=== PATIENT | male | born 1995 | race Caucasian/White ===

== ENCOUNTER 2018-08-24 02:36 | Emergency (ER) | payer OTHER ==
[~2018-08-24] VITALS: Ht 177.8 cm; Wt 93.2 kg
[2018-08-24 02:37] VITALS: BP 140/85
[2018-08-24] MEDS ORDERED: IBUP40TA PO (02:41)
[2018-08-24 03:41] LABS: INFLUENZA A AMPLIFICATION NEGATIVE (NEGATIVE); INFLUENZA B AMPLIFICATION NEGATIVE (NEGATIVE)
[2018-08-24] MEDS ORDERED: PRED20TA PO (04:21)
[2018-08-24] MEDS ORDERED: ZITHTAB PO (04:21)
--- NOTE | 2018-08-24 06:17 | REP ---
Clinical: Acute cough . Comparison: None . Technique: PA and lateral. Findings: The mediastinum and cardiac silhouette are normal. The lung portillo are clear and without acute consolidation, effusion, or pneumothorax. The skeletal structures are intact and normal. Impression: 1. No acute cardiopulmonary process. Electronically Signed by Shiraz Malloy MD 08/24/2018 06:08 A
== END 2018-08-24 04:32 | disposition home or self-care (01) ==
LOC: M ED 02:36
DX: J06.9 Acute upper respiratory infection, unspecified (principal); J40 Bronchitis, not specified as acute or chronic; R11.10 Vomiting, unspecified; F17.200 Nicotine dependence, unspecified, uncomplicated

== ENCOUNTER 2019-01-04 07:21 | Emergency (ER) | payer OTHER ==
[~2019-01-04] VITALS: Ht 180.3 cm; Wt 99.9 kg
[2019-01-04 07:21] VITALS: BP 129/68
[~2019-01-04 07:21] MED LIST: IBUP40TA PO; PRED20TA PO; ZITHTAB PO
[2019-01-04] MEDS ORDERED: MELA3TAB24 PO (07:28)
[2019-01-04] MEDS ORDERED: ROBI1LIQ9 PO (07:28)
[2019-01-04] MEDS ORDERED: IBUP-1022 PO (08:12)
[2019-01-04] MEDS ORDERED: AFRI0.058 (08:12)
[2019-01-04] MEDS ORDERED: BENZ200C70 PO (08:12)
[2019-01-04] MEDS ORDERED: ONDA4TAB6 PO (08:19)
--- NOTE | 2019-01-04 08:41 | REP ---
Chest two views HISTORY: Cough Comparison: 08/24/2018 The lungs are clear. The heart is normal in size. The pulmonary vasculature is normal in appearance. The bony structure is intact. IMPRESSION: No acute disease. Electronically Signed by Chester Emmanuel MD 01/04/2019 08:32 A
== END 2019-01-04 08:15 | disposition home or self-care (01) ==
LOC: M ED 07:21
DX: J06.9 Acute upper respiratory infection, unspecified (principal); F17.210 Nicotine dependence, cigarettes, uncomplicated

== ENCOUNTER → 2019-02-07 | Outpatient (CLI) | payer OTHER ==
[~2019-02-07] MED LIST changes: +AFRI0.058; +BENZ200C70 PO; +IBUP-1022 PO; +MELA3TAB24 PO; +ONDA4TAB6 PO; +ROBI1LIQ9 PO
--- NOTE | 2019-02-09 09:33 | SLEEPCENT ---
DATE OF PROCEDURE: 02/07/2019 ORDERED BY: Olga Fletcher NP Nocturnal polysomnography was performed for evaluation of sleep physiology in this patient with a history of snoring, irregular breathing patterns in sleep, excessive somnolence, and nonrestorative sleep. 8 hours and 28 minutes were of data were reviewed. There were 326 minutes of sleep identified. Sleep latency was prolonged at 61.5 minutes. Rapid eye movement (REM) latency was prolonged at 208 minutes. Sleep architecture once established was fair with 3 REM cycles noted. Overall sleep efficiency was 65.2% due to a period of wake after sleep onset. The electrocardiogram showed sinus rhythm with respiratory variability, average heart rate 62 beats per minute. Electroencephalogram (EEG) showed normal waveforms for awake and sleep. There were 50 respiratory events identified of 10 seconds in duration or greater for an apnea-hypopnea index of 9.2. The events were primarily obstructive but not exclusive to sleep stage nor body posture. Arousals from respiratory events occurred 3.5 times per hour and oxygen desaturations were seen into the upper 80s. There was some limb activity but arousals from limb events were few. IMPRESSION: Obstructive sleep apnea syndrome (G47.33). Apnea-hypopnea index 9.2. RECOMMENDATIONS: The patient should be encouraged to return to the sleep disorder center for pressure therapy. In the interim, alcohol and sedative avoidance should be practiced and cautioned exercised during the operation of motor vehicles.
== END ==
LOC: M SLEEP 19:27
PROVIDERS: ATTEND Nurse Practitioner Adult Health
DX: G47.30 Sleep apnea, unspecified (principal)

== ENCOUNTER → 2019-03-10 | Outpatient (CLI) | payer OTHER ==
--- NOTE | 2019-03-16 09:09 | SLEEPCENT ---
DATE OF PROCEDURE: 03/10/2019 ORDERED BY: Olga Fletcher NP Nocturnal polysomnography was performed for the titration of pressure therapy in this patient with obstructive sleep apnea syndrome, apnea-hypopnea index 9.2. For testing a [employer] Quattro Mirage full face mask of medium size was used. 4 cm of water pressure were applied to the circuit and the lights were extinguished. 7 hours and 35 minutes of data were reviewed. There 391 minutes of sleep identified. Sleep latency was prolonged at 36 minutes. REM latency was normal at 97 minutes. Sleep architecture was fairly good with three REM cycles noted. Overall sleep efficiency 89.2%. The patient's electrocardiogram showed a sinus rhythm with an average heart rate of 56 beats per minute. EEG showed normal waveforms for awake and sleep stages. Respiratory events reasonably well palliated with CPAP at a pressure of +8 and remaining measures of sleep physiology were normal. IMPRESSION: Obstructive sleep apnea syndrome (G47.33). RECOMMENDATION: Nightly use of pressure therapy, 8 cm of water.
== END ==
LOC: M SLEEP 19:44
PROVIDERS: ATTEND Nurse Practitioner Adult Health
DX: G47.33 Obstructive sleep apnea (adult) (pediatric) (principal)

== ENCOUNTER 2019-07-24 18:54 | Emergency (ER) | payer OTHER ==
[~2019-07-24] VITALS: Ht 180.3 cm; Wt 104.5 kg
[2019-07-24] MEDS ORDERED: NORCO, ANEXSIA 5/325MG TABLET (HYDROcodone/ACETAMINOPHEN) PO ONE (19:30)
--- NOTE | 2019-07-24 20:28 | REPVR ---
PROCEDURE INFORMATION: Exam: CT Maxillofacial Without Contrast Exam date and time: 07/24/2019 7:37 PM Age: 23 years old Clinical history: Face pain; Additional info: Trauma TECHNIQUE: Imaging protocol: Computed tomography images of the face without contrast. Radiation optimization: All CT scans at this facility use at least one of these dose optimization techniques: automated exposure control; mA and/or kV adjustment per patient size (includes targeted exams where dose is matched to clinical indication); or iterative reconstruction. COMPARISON: No relevant prior studies available. FINDINGS: Orbits: The globes and orbits are intact and normal in appearance. Mastoid air cells: Normal as visualized. No mastoid effusion. Auditory system: The middle ear spaces are clear. There are soft tissues opacities in the left external auditory canal, which likely represent cerumen. Sinuses: There is mild opacification of the left posterior ethmoid air cell. The rest of the sinuses are clear. No air-fluid levels are noted in the sinuses. The osteomeatal units are patent. The infundibuli are bordered laterally by orbit on both sides. Bones/joints: There is no fracture or dislocation of the facial bones. The temporomandibular joints are unremarkable. Nasal cavity: Unremarkable. Dental: No dental caries or periapical abscess is identified. Nasopharynx: Unremarkable. Oropharynx: There is moderate bilateral tonsillar hypertrophy. No tonsillar or peritonsillar abscess. Submandibular/Parotid glands: Unremarkable. Soft tissues: Unremarkable. No significant facial soft tissue swelling. No soft tissue fluid collection. IMPRESSION: No fracture or dislocation of the facial bones. Electronically signed by: Keith Lora On 07/24/2019 20:28:40 PM
--- NOTE | 2019-07-24 20:29 | REPVR ---
PROCEDURE INFORMATION: Exam: CT Head Without Contrast Exam date and time: 07/24/2019 7:37 PM Age: 23 years old Clinical history: Pain; Headache; Additional info: Trauma TECHNIQUE: Imaging protocol: Computed tomography of the head without contrast. Radiation optimization: All CT scans at this facility use at least one of these dose optimization techniques: automated exposure control; mA and/or kV adjustment per patient size (includes targeted exams where dose is matched to clinical indication); or iterative reconstruction. COMPARISON: No relevant prior studies available. FINDINGS: Brain: There is no evidence for an acute large vessel territorial infarct, intracranial hemorrhage, mass, mass effect, or herniation. The cortical gyration pattern, basal ganglia, thalami, and cerebellum are normal in appearance. Brainstem: Unremarkable. Midline shift: There is no midline shift. Ventricles: Normal. No ventriculomegaly. Bones/joints: Unremarkable. No acute fracture. Sinuses: There is mild opacification of a left posterior ethmoid air cell. The rest of the visualized sinuses are well aerated. No fluid levels. Mastoid air cells: Visualized mastoid air cells are well aerated. Soft tissues: Unremarkable. IMPRESSION: No acute intracranial abnormality. Electronically signed by: Keith Lora On 07/24/2019 20:29:09 PM
--- NOTE | 2019-07-24 20:35 | REPVR ---
PROCEDURE INFORMATION: Exam: CT Cervical Spine Without Contrast Exam date and time: 07/24/2019 7:37 PM Age: 23 years old Clinical history: Pain; Trauma TECHNIQUE: Imaging protocol: Computed tomography images of the cervical spine without contrast. Radiation optimization: All CT scans at this facility use at least one of these dose optimization techniques: automated exposure control; mA and/or kV adjustment per patient size (includes targeted exams where dose is matched to clinical indication); or iterative reconstruction. COMPARISON: No relevant prior studies available. FINDINGS: Vertebrae: There is a mild reversal of the normal cervical lordosis. The atlantooccipital alignment is normal. The atlantoaxial alignment is normal. There is no fracture or subluxation. The vertebral body heights are preserved. There is no cervical rib. C2-C3: The disc height is preserved. No disc herniation is noted. No spinal canal stenosis is noted. No neural foraminal stenosis is noted. The facet joints are unremarkable. C3-C4: The disc height is preserved. No disc herniation is noted. No spinal canal stenosis is noted. No neural foraminal stenosis is noted. The facet joints are unremarkable. C4-C5: The disc height is preserved. No disc herniation is noted. No spinal canal stenosis is noted. No neural foraminal stenosis is noted. The facet joints are unremarkable. C5-C6: The disc height is preserved. No disc herniation is noted. No spinal canal stenosis is noted. No neural foraminal stenosis is noted. The facet joints are unremarkable. C6-C7: The disc height is preserved. No disc herniation is noted. No spinal canal stenosis is noted. No neural foraminal stenosis is noted. The facet joints are unremarkable. C7-T1: The disc height is preserved. No disc herniation is noted. No spinal canal stenosis is noted. No neural foraminal stenosis is noted. The facet joints are unremarkable. T1-T2: The disc height is preserved. No disc herniation is noted. No spinal canal stenosis is noted. No neural foraminal stenosis is noted. The facet joints are unremarkable. Soft tissues: Unremarkable. No soft tissue fluid collection is noted. Prevertebral Space: No prevertebral soft tissue swelling is noted. Lungs: The imaged lung apices are clear. IMPRESSION: Mild reversal of the normal cervical lordosis, but no fracture or subluxation in the cervical spine. Electronically signed by: Keith Lora On 07/24/2019 20:32:04 PM
--- NOTE | 2019-07-24 20:38 | REPVR ---
PROCEDURE INFORMATION: Exam: CT Chest Without Contrast Exam date and time: 07/24/2019 7:37 PM Age: 23 years old Clinical history: Left-sided chest pain; Additional info: Trauma TECHNIQUE: Imaging protocol: Computed tomography of the chest without contrast. 3D rendering: MIP reconstructed images were created and reviewed. Radiation optimization: All CT scans at this facility use at least one of these dose optimization techniques: automated exposure control; mA and/or kV adjustment per patient size (includes targeted exams where dose is matched to clinical indication); or iterative reconstruction. COMPARISON: CR Chest, 2 view PA, Lat 01/04/2019 7:53 AM FINDINGS: Lungs: The lungs are clear. There is no evidence for a pulmonary contusion or pulmonary laceration. There is no lung consolidation or mass. No emphysematous changes or interstitial lung disease is noted. The major airways are patent. The tracheobronchial tree is intact. Pleural space: Unremarkable. No pneumothorax. No pleural effusion. Heart: No cardiomegaly. No pericardial effusion. Mediastinum: No mediastinal mass, fluid collection, or pneumomediastinum. Aorta: There is no thoracic aortic aneurysm or intramural hematoma. Lymph nodes: Normal. No enlarged lymph nodes. Liver: The liver measures less than 40 Hounsfield units and the attenuation of the liver measures more than 10 Hounsfield units lower compared to the attenuation of the spleen, which is compatible with fatty liver infiltration. There is focal fatty sparing adjacent to the gallbladder fossa. No liver lesion is seen. The contour of the liver is smooth. The liver is enlarged and measures 17.1 cm in craniocaudal dimension at the level of the right midclavicular line. The inferior most aspect of the right hepatic lobe was not imaged. Gallbladder and bile ducts: The gallbladder is contracted. No calcified gallstones are seen. No gallbladder wall thickening, pericholecystic fluid, or pericholecystic inflammatory changes are identified. No dilation of the intrahepatic or extrahepatic bile ducts is noted. Pancreas: Unremarkable. No dilation of the main pancreatic duct is noted. Spleen: Unremarkable. No splenomegaly is noted. Adrenals: Normal. No adrenal mass. Bones/joints: The imaged bony structures are intact. There is no suspicious osteolytic or osteoblastic lesion. Soft tissues: Unremarkable. IMPRESSION: 1. No noncontrast CT evidence for acute traumatic injury in the chest. 2. Enlarged, fatty liver. Electronically signed by: Keith Lora On 07/24/2019 20:38:09 PM
[2019-07-24 21:04] VITALS: BP 138/77
== END 2019-07-24 21:12 | disposition home or self-care (01) ==
LOC: M ED 18:54
DX: S00.93XA Contusion of unspecified part of head, initial encounter (principal); S20.219A Contusion of unspecified front wall of thorax, initial encounter; V49.40XA Driver injured in collision with unspecified motor vehicles in traffic accident, initial encounter; K76.0 Fatty (change of) liver, not elsewhere classified; Z79.899 Other long term (current) drug therapy